=== PATIENT | female | born 2000 | race Caucasian/White ===

== ENCOUNTER 2019-02-21 23:24 | Emergency (ER) | payer SELFPAY ==
[~2019-02-21] VITALS: Ht 157.5 cm; Wt 49.4 kg
[2019-02-21 23:26] VITALS: Ht 157.5 cm; Wt 49.4 kg
[2019-02-22 00:03] VITALS: BP 118/92
== END 2019-02-22 00:03 | disposition home or self-care (01) ==
LOC: ED 23:24
DX: R07.89 Other chest pain (principal); R05 Cough